=== PATIENT | female | born 1990 | race Caucasian/White ===

== ENCOUNTER 2022-06-20 11:50 | Emergency (ER) | payer MEDICAID ==
[~2022-06-20] VITALS: Ht 172.7 cm; Wt 106.0 kg
[2022-06-20] MEDS ORDERED: CIPHCO EACH EAR (14:06)
[2022-06-20] MEDS ORDERED: AMOX-494 MT (14:06)
[2022-06-20] MEDS ORDERED: KETOROLAC 60MG/2ML VIAL IM ONE (14:15)
[2022-06-20] MEDS ORDERED: ACETAMINOPHEN WITH CODEINE 300/30MG TABLET PO ONE (14:30)
[2022-06-20 14:40] VITALS: BP 134/90
[2022-06-20] MEDS ORDERED: IBUP-2029 MT (14:51)
== END 2022-06-20 14:53 | disposition home or self-care (01) ==
LOC: ER 14:14
DX: H66.91 Otitis media, unspecified, right ear (principal)
CPT/HCPCS: 99283; J1885

== ENCOUNTER 2022-08-16 13:54 | Emergency (ER) | payer MEDICAID ==
[~2022-08-16] VITALS: Ht 177.8 cm; Wt 101.0 kg
[~2022-08-16 13:54] MED LIST: AMOX-494 MT; CIPHCO EACH EAR; IBUP-2029 MT
[2022-08-16 15:51] LABS: BASOPHILS % 0.7 % (0.0-2.0); EOSINOPHILS % 3.4 % (0.0-5.0); HEMATOCRIT. 42.1 % (36.0-48.0); HEMOGLOBIN. 14.5 g/dL (12.0-16.0); LYMPHOCYTES % 27.7 % (20.0-50.0); MEAN CORPUSCULAR HEMOGLOBIN 30.3 pg (28.0-32.0); MEAN CORPUSCULAR VOLUME 87.9 fL (81.0-99.0); MEAN PLATELET VOLUME 9.1 fl (7.4-10.4); MONOCYTES % 7.1 % (2.0-8.0); NEUTROPHILS % 61.1 % (40.0-76.0); PLATELET 215 x1000/uL (130-400); RED BLOOD CELL COUNT 4.79 mill/uL (4.2-5.4); RED CELL DISTRIBUTION WIDTH 13.3 % (11.6-14.6)
[2022-08-16 15:55] LABS: CLARITY URINE CLEAR (CLEAR); COLOR URINE YELLOW (YELLOW); KETONES URINE NEGATIVE (NEGATIVE); LEUKOCYTE ESTERASE URINE NEGATIVE (NEGATIVE); NITRITE URINE NEGATIVE (NEGATIVE); OCCULT BLOOD URINE NEGATIVE (NEGATIVE); PROTEIN URINE NEGATIVE (NEGATIVE); SPECIFIC GRAVITY URINE 1.022 (1.005-1.030); UROBILINOGEN URINE 0.2 E.U./dL (0.2-1.0)
[2022-08-16 15:58] LABS: PROTHROMBIN TIME 10.9 sec (9.6-11.0)
[2022-08-16 16:01] LABS: CHLORIDE 106 mEq/L (98-107); HCG SCREEN NEGATIVE
[2022-08-16 16:07] LABS: ETHANOL BLOOD < 10 mg/dL
[2022-08-16 16:12] LABS: *AMPHETAMINES SCREEN URINE NEGATIVE (NEGATIVE); *BARBITURATES SCREEN URINE NEGATIVE (NEGATIVE); *BENZODIAZEPINES SCREEN URINE NEGATIVE (NEGATIVE); *COCAINE SCREEN URINE NEGATIVE (NEGATIVE); CANNABINOID URINE SCREEN NEGATIVE (NEGATIVE); METHADONE URINE SCREEN NEGATIVE (NEGATIVE); OPIATES URINE SCREEN NEGATIVE (NEGATIVE); PHENCYCLIDINE URINE SCREEN NEGATIVE (NEGATIVE)
[2022-08-16] MEDS ORDERED: AMOX1TAB16 MT (17:55)
[2022-08-16] MEDS ORDERED: IBUP-2030 MT (17:55)
[2022-08-16 18:23] VITALS: BP 143/89
== END 2022-08-16 18:37 | disposition home or self-care (01) ==
LOC: ER 13:54
DX: L03.311 Cellulitis of abdominal wall (principal); J45.909 Unspecified asthma, uncomplicated
CPT/HCPCS: 36415; 74176; 80053; 80305; 80320; 81003; 81025; 84703; 85025; 99284; G0480